=== PATIENT | female | born 1960 | race Caucasian/White ===

== ENCOUNTER 2021-04-05 08:08 | Day surgery (SDC) | payer BC ==
[~2021-04-05 08:08] MED LIST: Lactated Ringers 1,000 ML IV SCH; Sodium Chloride 0.9% 10 ML SDV IV PRN; Sodium Chloride 0.9% 10 ML Syringe FLUSH PRN; Sodium Chloride 0.9% 2.5 ML Syringe FLUSH PRN
--- NOTE | 2021-04-05 09:00 | PCM.PREANE ---
Preanesthetic Assessment - Procedure Proposed Procedure: Colonoscopy - Anesthesia/Transfusion/Family Hx Anesthesia History: Prior Anesthesia Without Reaction Family History of Anesthesia Reaction: No Transfusion History: No Prior Transfusion(s) - Review of Systems General: No Symptoms Pulmonary: No Symptoms Cardiovascular: No Symptoms (HTN) Gastrointestinal: No Symptoms Neurological: No Symptoms Other: Reports: Diabetes (AODM on Metformin, Jardiance and Ozempic) - Physical Assessment NPO Status Date: 04/03/21 NPO Status Time: 18:00 (Solids, >8Hr Liq) Vital Signs: Last Vital Signs Temp 97.7 F 04/05/21 08:26 Pulse 96 04/05/21 08:26 Resp 16 04/05/21 08:26 BP 134/74 04/05/21 08:26 Pulse Ox 97 04/05/21 08:26 Height: 5 ft 5 in Weight: 73.028 kg ASA Class: 2 Mental Status: Alert & Oriented x3 Airway Class: Mallampati = 2 Dentition: Reports: Normal Dentition Thyro-Mental Finger Breadths: 3 Mouth Opening Finger Breadths: 3 ROM/Head Extension: Full Lungs: Clear to Auscultation, Normal Respiratory Effort Cardiovascular: Regular Rate, Regular Rhythm, Murmurs - Lab Values: Laboratory Last Values POC Glucose 113 mg/dL (70-99) H 04/05/21 08:31 - Allergies Allergies/Adverse Reactions: Allergies Allergy/AdvReac Type Severity Reaction Status Date / Time No Known Allergies Allergy Verified 04/01/21 11:31 - Acknowledgements Anesthesia Type Planned: General Anesthesia Pt an Appropriate Candidate for the Planned Anesthesia: Yes Alternatives and Risks of Anesthesia Discussed w Pt/Guardian: Yes Pt/Guardian Understands and Agrees with Anesthesia Plan: Yes PreAnesthesia Questionnaire HEENT History: Reports: Other (See Below) Other HEENT History: wears glasses Cardiovascular History: Reports: Heart Murmur, Hypertension Respiratory History: Reports: None Gastrointestinal History: Reports: Hemorrhoids Genitourinary History: Reports: None 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: Musculoskeletal History: Reports: Fracture Other Musculoskeletal History: hx fx ankle Neurological History: Reports: None Psychiatric History: Reports: None Endocrine/Metabolic History: Reports: Diabetes, Type II Hematologic History: Reports: None Immunologic History: Reports: None Oncologic (Cancer) History: Reports: None Dermatologic History: Reports: None - Past Surgical History Head Surgeries/Procedures: Reports: None HEENT Surgical History: Reports: None Cardiovascular Surgical History: Reports: None Respiratory Surgical History: Reports: None GI Surgical History: Reports: Colonoscopy Female Surgical History: Reports: Tubal Ligation Endocrine Surgical History: Reports: None Neurological Surgical History: Reports: None Musculoskeletal Surgical History: Reports: None Oncologic Surgical History: Reports: None Dermatological Surgical History: Reports: None - SUBSTANCE USE Tobacco Use Status *Q: Never Tobacco User Tobacco Use Within Last Twelve Months: No - HOME MEDS Home Medications: Home Meds Empagliflozin [Jardiance] 25 mg PO DAILY 04/01/21 [History] Losartan Potassium 50 mg PO DAILY 04/01/21 [History] Semaglutide [Ozempic] 1 injection SUBCUT WEEKLY 04/01/21 [History] metFORMIN HCl [Metformin HCl] 1,000 mg PO BID 04/01/21 [History] - CURRENT (IN HOUSE) MEDS Current Meds: Current Medications Lactated Ringer's (Ringers, Lactated) 1,000 mls @ 125 mls/hr IV ASDIRECTED [facility] Last Admin: 04/05/21 08:25 Dose: 125 mls/hr Documented by: Sodium Chloride (Sodium Chloride 0.9% 10 Ml Syringe) 10 ml FLUSH ASDIRECTED PRN PRN Reason: Keep Vein Open Sodium Chloride (Sodium Chloride 0.9% 2.5 Ml Syringe) 2.5 ml FLUSH ASDIRECTED PRN PRN Reason: Keep Vein Open Sodium Chloride (Sodium Chloride 0.9% 10 Ml Syringe) 10 ml FLUSH ASDIRECTED PRN PRN Reason: Keep Vein Open Sodium Chloride (Sodium Chloride 0.9% 2.5 Ml Syringe) 2.5 ml FLUSH ASDIRECTED PRN PRN Reason: Keep Vein Open Sodium Chloride (Sodium Chloride 0.9% 10 Ml Sdv) 10 ml IV ASDIRECTED PRN PRN Reason: IV Use
[2021-04-05] MEDS ORDERED: fentaNYL 100 MCG/2 ML SDV ONE (09:49)
[2021-04-05] MEDS ORDERED: Propofol 200 MG/20 ML SDV ONE (09:49)
--- NOTE | 2021-04-05 10:55 | PCM.OPNOTE ---
- General Post-Op/Procedure Note Date of Surgery/Procedure: 04/05/21 Operative Procedure(s): Screening colonoscopy Findings: Normal colonoscopy Pre Op Diagnosis: Family history of colon cancer Post-Op Diagnosis: Normal colonoscopy Anesthesia Technique: MANUELA Primary Surgeon: Jazzy Nayak Condition: Good
--- NOTE | 2021-04-05 10:56 | PCM.POSTAN ---
POST ANESTHESIA ASSESSMENT - MENTAL STATUS Mental Status: Somnolent - VITAL SIGNS Vital Signs: Last Vital Signs Temp 97.7 F 04/05/21 08:26 Pulse 96 04/05/21 08:26 Resp 16 04/05/21 08:26 BP 134/74 04/05/21 08:26 Pulse Ox 97 04/05/21 08:26 - RESPIRATORY Respiratory Status: Respiratory Rate WNL, Airway Patent, O2 Saturation Stable - CARDIOVASCULAR CV Status: Pulse Rate WNL, Blood Pressure Stable - GASTROINTESTINAL GI Status: No Symptoms - PAIN Free Text/Narrative:: Resting comfortably - POST OP HYDRATION Hydration Status: Adequate & Stable
--- NOTE | 2021-04-05 10:58 | PCM48HPAN ---
Post Anesthesia Note - EVALUATION WITHIN 48HRS OF ANESTHETIC Vital Signs in Normal Range: Yes Patient Participated in Evaluation: Yes Respiratory Function Stable: Yes Airway Patent: Yes Cardiovascular Function Stable: Yes Hydration Status Stable: Yes Pain Control Satisfactory: Yes Nausea and Vomiting Control Satisfactory: Yes Mental Status Recovered: Yes Vital Signs: Last Vital Signs Temp 97.7 F 04/05/21 08:26 Pulse 96 04/05/21 08:26 Resp 16 04/05/21 08:26 BP 134/74 04/05/21 08:26 Pulse Ox 97 04/05/21 08:26 - COMMENTS/OBSERVATIONS Free Text/Narrative:: Pt doing well post-op. VSS. No apparent anesthetic complications. Dr. Jose Johnson
--- NOTE | 2021-04-05 12:28 | OR ---
SURGEON: JAZZY NAYAK MD DATE OF PROCEDURE: 04/05/2021 PREOPERATIVE DIAGNOSIS: Family history of colon cancer. POSTOPERATIVE DIAGNOSIS: Family history of colon cancer. PROCEDURE PERFORMED: Screening colonoscopy. PRIMARY SURGEON: Jazzy Nayak MD ANESTHESIA: MAC. INSTRUMENT USED: Olympus colonoscope. EXTENT OF EXAM: To the cecum. PREPARATION: Good. LIMITATIONS: None. INDICATIONS FOR EXAMINATION: The patient is a 60-year-old female with a very strong family history of colon cancer. She is due for a colonoscopy. I explained the procedure, expected perioperative course, and the risks. She verbalized understanding and wishes to proceed. PROCEDURE IN DETAIL: The patient was brought to the endoscopy suite and placed in a left lateral decubitus position. A time-out was completed verifying the patient's name, age, date of , allergies, and procedure to be performed. Monitored anesthesia care was induced and continuous oxygen was provided via facemask throughout the procedure. After adequate sedation was achieved, a digital rectal exam was performed. This exam was within normal limits. A well-lubricated colonoscope was inserted in the rectum and advanced under direct visualization to the level of cecum. The cecum was identified by both visual and anatomic landmarks. A photograph was taken of the cecal cap as well as with the scope retroflexed within the cecum. The scope was then fully withdrawn while examining the color, texture, anatomy, and integrity of the mucosa from the cecum to the anal canal. The patient was found to have normal-appearing colonic mucosa. The scope was brought into the rectum and retroflexed to allow visualization of the anal canal opening. This appeared normal and a photograph was taken. The scope was then straightened out and fully withdrawn. The cecum to anus time was 14 minutes. The patient tolerated the procedure well and was transferred to the PACU in stable condition. ENDOSCOPIC DIAGNOSIS: Family history of colon cancer, normal colonoscopy. RECOMMENDATIONS: The patient and I discussed genetic testing given her very strong family history of colon cancer. We will visit with the patient about this in clinic, but at this time, will need a repeat colonoscopy in 5 years. DANIEL ADKINS /[id number]
== END 2021-04-05 11:41 | disposition home or self-care (01) ==
LOC: MW.SDS 08:08
PROVIDERS: ATTEND Surgery
DX: Z12.11 Encounter for screening for malignant neoplasm of colon (principal); E11.9 Type 2 diabetes mellitus without complications; I10 Essential (primary) hypertension; Z79.899 Other long term (current) drug therapy; Z80.0 Family history of malignant neoplasm of digestive organs; Z79.84 Long term (current) use of oral hypoglycemic drugs; Z98.890 Other specified postprocedural states
CPT/HCPCS: 45378; 82947; J2704; J3010; J7120; 00812